=== PATIENT | female | born 1990 | race Hispanic/Latino ===

== ENCOUNTER 2018-05-24 02:28 | Emergency (ER) | payer BC ==
[2018-05-24 02:44] VITALS: RESP 16
[2018-05-24] MEDS ORDERED: Alum-Mag Hydrox-Simethicone Susp (30 mL) PO STA (02:50)
--- NOTE | 2018-05-24 02:57 | ED PDOC ---
HPI: Abdomen Time Seen by Provider: 05/24/18 02:54 Chief Complaint (Nursing): Abdominal Pain Chief Complaint (Provider): ABDOMINAL PAIN History Per: Patient (28 Y/O FEMALE HERE WITH EPIGASTRIC PAIN THAT BEGAN AT 1AM IN THE MORNING WAXING AND WANING. TUCKER ANY VOMITING/DIARRHEA/FEVERS/CHILLS. NO H/O ABD SURGERIES. NO PRIOR H/O ABD PAIN. NOTES SHE LAST ATE AT 6PM LAST NIGHT. ATTEMPTED USE OF TYLENOL WITHOUT RELIEF.) Past Medical History Reviewed: Historical Data, Nursing Documentation, Vital Signs Vital Signs: Last Vital Signs Temp 98.5 F 05/24/18 05:02 Pulse 72 05/24/18 05:02 Resp 16 05/24/18 02:41 BP 99/41 L 05/24/18 05:02 Pulse Ox 99 05/24/18 06:16 - Family History Family History: States: No Known Family Hx - Home Medications Home Medications: Ambulatory Orders Medication Instructions Recorded Ranitidine HCl [Zantac] 150 mg PO DAILY #5 tablet 05/24/18 - Allergies Allergies/Adverse Reactions: Allergies Allergy/AdvReac Type Severity Reaction Status Date / Time No Known Allergies Allergy Verified 05/24/18 02:44 Review of Systems ROS Statement: Except As Marked, All Systems Reviewed And Found Negative Gastrointestinal: Positive for: Abdominal Pain Physical Exam - Reviewed Nursing Documentation Reviewed: Yes Vital Signs Reviewed: Yes - Physical Exam Appears: Positive for: Well, Non-toxic, No Acute Distress Head Exam: Positive for: ATRAUMATIC, NORMAL INSPECTION, NORMOCEPHALIC Skin: Positive for: Normal Color, Warm, DRY Eye Exam: Positive for: EOMI, Normal appearance, PERRL ENT: Positive for: Normal ENT Inspection Neck: Positive for: Normal, Painless ROM Cardiovascular/Chest: Positive for: Regular Rate, Rhythm Respiratory: Positive for: CNT, Normal Breath Sounds Gastrointestinal/Abdominal: Positive for: Normal Exam, Soft, Tenderness ( EPIGASTRIC; NEG BOLAÑOS'S SIGN) Back: Positive for: Normal Inspection Extremity: Positive for: Normal ROM Neurologic/Psych: Positive for: Alert, Oriented - Laboratory Results Result Diagrams: 05/24/18 03:55 05/24/18 03:55 Urine POC: Negative - ECG O2 Sat by Pulse Oximetry: 99 - Progress ED Course And Treament: maalox 30 ml po x 1 dose viscous lidocaine 5ml po x 1 dose Disposition - Clinical Impression Clinical Impression: Abdominal pain in female - Patient ED Disposition Is Patient to be Admitted: No - Disposition Referrals: [facility] [Outside] Disposition: Routine/Home Disposition Time: 04:29 Condition: FAIR Prescriptions: Ranitidine HCl [Zantac] 150 mg PO DAILY #5 tablet Instructions: Gastritis, Ulcer and Gastritis Diet Forms: [facility] ED School/Work Excuse
[2018-05-24] MEDS ORDERED: Alum-Mag Hydrox-Simethicone Susp (30 mL) ONE (03:08)
[2018-05-24 04:11] LABS: BASO % 0.4 % (0.0-2.0); EOS # 0.1 K/uL (0.0-0.7); EOS % 0.7 % (0.0-4.0); HEMOGLOBIN 12.8 g/dL (12.0-16.0); LYMPH % 31.3 % (20.0-40.0); MEAN CORPUSCULAR HEMOGLOBIN 30.2 pg (27.0-31.0); MEAN CORPUSCULAR HGB CONC 35.1 g/dL (33.0-37.0); MONO # 0.8 K/uL (0.0-0.8); MONO % 7.7 % (0.0-10.0); NEUT # 5.8 K/uL (1.8-7.0); NEUT % 59.9 % (50.0-75.0); NRBC % 0.2 % (0.0-0.0); RBC 4.25 Mil/uL (3.80-5.20); RED CELL DISTRIBUTION WIDTH 12.1 % (11.5-14.5); WHITE BLOOD COUNT 9.7 K/uL (4.8-10.8)
[2018-05-24 04:17] LABS: ALB/GLOB RATIO 1.4 (1.0-2.1); ALBUMIN 4.2 g/dL (3.5-5.0); ALT/SGPT 22 U/L (9-52); AST/SGOT 37 U/L (14-36); BLOOD UREA NITROGEN 11 mg/dl (7-17); CALCIUM 8.6 mg/dL (8.4-10.2); GFR AFRICAN-AMERICAN > 60; GFR NON-AFRICAN AMERICAN > 60; LIPASE 82 U/L (23-300)
[2018-05-24 05:04] VITALS: BP 99/41; PULSE 72; TEMP 98.5
[2018-05-24 06:17] VITALS: O2SAT 99
== END 2018-05-24 05:02 | disposition home or self-care (01) ==
LOC: H.ER 02:28
DX: R10.2 Pelvic and perineal pain (principal)